=== PATIENT | female | born 1960 | race Asian ===

== ENCOUNTER 2022-06-24 15:18 | Emergency (ER) | payer SELFPAY ==
[~2022-06-24] VITALS: Ht 168 cm; Wt 62.0 kg
[2022-06-24 15:25] VITALS: TEMP 97.6
[2022-06-24 15:54] LABS: BASO % 0.8 % (0.0-2.0); EOS # 0.2 K/mm3 (0.0-0.7); EOS % 3.1 % (0.0-4.0); GRAN # 3.5 K/mm3 (1.4-6.5); GRAN % 68.2 % (42.2-75.2); HEMATOCRIT 41.2 % (37.0-47.0); HEMOGLOBIN 14.3 g/dl (12.5-16.0); LYMPH # 1.1 K/mm3 (1.2-3.4); LYMPH % 21.8 % (20.0-51.0); MEAN CELL VOLUME 95 fl (80.0-100.0); MEAN CORPUSCULAR HEMOGLOBIN 33 pg (27-31); MEAN CORPUSCULAR HGB CONC 35 g/dl (33.0-37.0); MEAN PLATELET VOLUME 10.3 fl (7.4-10.4); MONO # 0.3 K/mm3 (0.1-0.6); MONO % 5.9 % (1.7-9.3); PLATELET COUNT 230 K/mm3 (130-400); RED BLOOD COUNT 4.34 M/mm3 (4.10-5.30); REDCELL DISTRIBUTION WIDTH-CV 11.9 % (11.5-14.5)
[2022-06-24 16:04] LABS: ALBUMIN 3.9 gm/dL (3.5-5.0); ANION GAP 12 mmol/L (7-16); BLOOD UREA NITROGEN 18 mg/dL (10-20); CALCIUM 9.1 mg/dL (8.4-10.2); CARBON DIOXIDE 21 mmol/L (22-29); CHLORIDE 106 mmol/L (98-107); CREATININE, serum 0.75 mg/dL (0.57-1.11); GLUCOSE 206 mg/dL (70-99); PHOSPHOROUS 3.1 mg/dL (2.3-4.7); POTASSIUM 3.7 mmol/L (3.5-4.5); SODIUM 139 mmol/L (136-145)
[2022-06-24 16:12] LABS: TROPONIN-I < 0.010 ng/mL (0.00-0.033)
[2022-06-24] MEDS ORDERED: DIOVAN 40MG40 MG PO ×3 (19:45→20:21)
[2022-06-24 20:05] VITALS: BP 182/96; PULSE 60
== END 2022-06-24 20:05 | disposition home or self-care (01) ==
LOC: COL.ER 15:18
PROVIDERS: Emergency Medicine
DX: R07.89 Other chest pain (principal); R03.0 Elevated blood-pressure reading, without diagnosis of hypertension; R94.31 Abnormal electrocardiogram [ECG] [EKG]
CPT/HCPCS: J3010

== ENCOUNTER 2022-06-26 14:36 | Emergency (ER) | payer SELFPAY ==
[~2022-06-26] VITALS: Ht 160 cm; Wt 63.0 kg
[~2022-06-26 14:36] MED LIST: DIOVAN 40MG40 MG PO
[2022-06-26 15:15] LABS: BASO % 0.5 % (0.0-2.0); EOS # 0.1 K/mm3 (0.0-0.7); EOS % 1.2 % (0.0-4.0); GRAN # 4.8 K/mm3 (1.4-6.5); GRAN % 73.6 % (42.2-75.2); HEMATOCRIT 43.5 % (37.0-47.0); LYMPH # 1.2 K/mm3 (1.2-3.4); LYMPH % 18.9 % (20.0-51.0); MEAN CELL VOLUME 96 fl (80.0-100.0); MEAN CORPUSCULAR HEMOGLOBIN 33 pg (27-31); MEAN CORPUSCULAR HGB CONC 35 g/dl (33.0-37.0); MEAN PLATELET VOLUME 9.8 fl (7.4-10.4); MONO # 0.4 K/mm3 (0.1-0.6); MONO % 5.5 % (1.7-9.3); PLATELET COUNT 243 K/mm3 (130-400); RED BLOOD COUNT 4.53 M/mm3 (4.10-5.30); REDCELL DISTRIBUTION WIDTH-CV 12.1 % (11.5-14.5)
[2022-06-26 15:30] LABS: PROTHROMBIN TIME 11.6 SECONDS (9.7-12.8)
[2022-06-26 15:32] LABS: PARTIAL THROMBOPLASTIN TIME 31.4 SECONDS (26.0-37.0)
[2022-06-26 15:34] LABS: ALANINE AMINOTRANSFERASE 24 U/L (0-55); ALBUMIN 4.2 gm/dL (3.5-5.0); ALKALINE PHOSPHATASE 53 U/L (40-150); ANION GAP 13 mmol/L (7-16); AST,SGOT 23 U/L (5-34); BILIRUBIN,TOTAL 1.2 mg/dL (0.2-1.2); BLOOD UREA NITROGEN 19 mg/dL (10-20); CALCIUM 9.3 mg/dL (8.4-10.2); CARBON DIOXIDE 20 mmol/L (22-29); CHLORIDE 106 mmol/L (98-107); CREATININE, serum 0.74 mg/dL (0.57-1.11); GLUCOSE 135 mg/dL (70-99); SODIUM 139 mmol/L (136-145); TOTAL PROTEIN 7.6 gm/dL (6.2-8.1)
[2022-06-26 15:42] LABS: TROPONIN-I < 0.010 ng/mL (0.00-0.033)
[2022-06-26 16:32] VITALS: BP 145/89
[2022-06-26 17:52] VITALS: PULSE 64
== END 2022-06-26 17:38 | disposition home or self-care (01) ==
LOC: COL.ER 14:36
PROVIDERS: Family Medicine
DX: R07.89 Other chest pain (principal)